=== PATIENT | male | born 1975 | race Caucasian/White ===

== ENCOUNTER 2016-10-23 12:06 | Emergency (ER) | payer OTHER ==
[2016-10-23 12:27] VITALS: TEMP 98.7
--- NOTE | 2016-10-23 12:57 | ED.PDOC ---
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 Timing/Duration: 1-3 hours Severity: moderate Improving Factors: nothing Worsening Factors: nothing Associated Symptoms: nausea/vomiting - nausea but no vomiting Allergies/Adverse Reactions: Allergies NO KNOWN ALLERGY Allergy (Verified 10/23/16 12:27) Home Medications: Ambulatory Orders Magnesium Oxide 400 mg PO BEDTIME #30 cap 10/23/16 PARoxetine HCL [Paxil] 20 mg PO DAILY 10/23/16 Potassium Chloride Tab [Slow-K] 8 meq PO QDPC #5 tab 10/23/16 Review of Systems - Review of Systems Constitutional: States: no symptoms reported EENTM: States: no symptoms reported Respiratory: States: no symptoms reported Cardiology: States: no symptoms reported Gastrointestinal/Abdominal: States: no symptoms reported Genitourinary: States: no symptoms reported Musculoskeletal: States: no symptoms reported Skin: States: no symptoms reported Neurological: States: other - dizziness Endocrine: States: no symptoms reported Hematologic/Lymphatic: States: no symptoms reported Past Medical History (General) - Patient Medical History Hx Asthma: No Hx Cardiac Disorders: No Hx Other PMH: Yes - ASpergers Surgical History: other - hernia repair - Vaccination History Hx Tetanus, Diphtheria Vaccination: Yes Hx Influenza Vaccination: Yes - Social History Hx Tobacco Use: No Hx Alcohol Use: No Hx Substance Use: No Hx Substance Use Treatment: No Hx Depression: No - Activities of Daily Living Hospice Agency (if applicable):: None - Female History Patient is a Female of Child Bearing Age (10 -59 yrs old): No Patient : No Family Medical History - Family History Mother Family History: No Known Physical Exam - Physical Exam General Appearance: Alert, No apparent distress Eye Exam: bilateral normal Ears, Nose, Throat: hearing grossly normal, normal ENT inspection, normal pharynx Neck: non-tender, full range of motion, supple Respiratory: chest non-tender, lungs clear, normal breath sounds, no respiratory distress, no accessory muscle use Cardiovascular/Chest: normal peripheral pulses, regular rate, rhythm, no edema, no gallop, no JVD, no murmur Gastrointestinal/Abdominal: normal bowel sounds, non tender, soft, no organomegaly, no pulsatile mass Back Exam: normal inspection, no CVA tenderness, no vertebral tenderness Extremity: normal range of motion, non-tender, normal inspection 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, no motor/sensory deficits, alert, normal mood/affect, oriented x 3 Skin Exam: normal color, warm/dry Lymphatic: no adenopathy Progress - Results/Orders Results/Orders: 10/23/16 13:00 EKG STAT Laboratory Results WBC 9.6 K/mm3 (4.8-10.8) 10/23/16 13:10 RBC 4.70 M/mm3 (4.70-6.10) 10/23/16 13:10 Hgb 13.6 gm/dL (14.0-18.0) L 10/23/16 13:10 Hct 40.1 % (42.0-52.0) L 10/23/16 13:10 MCV 85.4 fl (80.0-94.0) 10/23/16 13:10 MCH 28.9 pg (27.0-31.0) 10/23/16 13:10 MCHC 33.9 g/dL (33.0-37.0) 10/23/16 13:10 RDW 13.0 % (11.5-14.5) 10/23/16 13:10 Plt Count 168 K/mm3 (130-400) 10/23/16 13:10 MPV 7.2 fl (7.40-10.4) L 10/23/16 13:10 Absolute Neuts (auto) 8.20 K/uL (1.8-6.8) H 10/23/16 13:10 Absolute Lymphs (auto) 0.80 K/uL (1.0-3.4) L 10/23/16 13:10 Absolute Monos (auto) 0.60 K/uL (0.2-0.8) 10/23/16 13:10 Absolute Eos (auto) 0.00 K/uL (0.0-0.4) 10/23/16 13:10 Absolute Basos (auto) 0.00 K/uL (0.0-0.1) 10/23/16 13:10 Neutrophils % 85.4 % (42.0-78.0) H 10/23/16 13:10 Lymphocytes % 8.2 % (20.0-50.0) L 10/23/16 13:10 Monocytes % 6.2 % (2.0-9.0) 10/23/16 13:10 Eosinophils % 0.1 % (1.0-5.0) L 10/23/16 13:10 Basophils % 0.1 % (0.0-2.0) 10/23/16 13:10 Differential Comment Cancelled 10/23/16 13:10 RBC Morphology Cancelled 10/23/16 13:10 PT 13.2 SECONDS (9.4-12.5) H 10/23/16 13:10 INR 1.170 10/23/16 13:10 PTT (SP) 30.1 SECONDS (25.1-36.5) 10/23/16 13:10 D-Dimer, Quantitative < 230 ng/mL (0-230) 10/23/16 13:10 Sodium 136 mmol/L (135-145) 10/23/16 13:10 Potassium 3.5 mmol/L (3.6-5.0) L 10/23/16 13:10 Chloride 100 mmol/L (101-111) L 10/23/16 13:10 Carbon Dioxide 29 mmol/L (21-31) 10/23/16 13:10 Anion Gap 10.5 (12-18) L 10/23/16 13:10 BUN 14 mg/dL (7-18) 10/23/16 13:10 Creatinine 1.01 mg/dL (0.6-1.3) 10/23/16 13:10 BUN/Creatinine Ratio 13.9 (10-20) 10/23/16 13:10 Random Glucose 117 mg/dL (70-105) H 10/23/16 13:10 Serum Osmolality 273.5 mOsm/L (275-295) L 10/23/16 13:10 Calcium 9.0 mg/dL (8.4-10.2) 10/23/16 13:10 Magnesium 1.7 mg/dL (1.8-2.5) L 10/23/16 13:10 Total Bilirubin 1.0 mg/dL (0.2-1.0) 10/23/16 13:10 AST 15 IU/L (10-42) 10/23/16 13:10 ALT 14 IU/L (10-60) 10/23/16 13:10 Alkaline Phosphatase 80 IU/L (42-121) 10/23/16 13:10 Creatine Kinase 83 IU/L (38-174) 10/23/16 13:10 CK-MB (CK-2) 0.8 ng/mL (0.0-4.4) 10/23/16 13:10 CK-MB (CK-2) % Not Reportable 10/23/16 13:10 Troponin I < 0.02 ng/mL (0.01-0.05) 10/23/16 13:10 Serum Total Protein 7.1 gm/dL (6.4-8.2) 10/23/16 13:10 Albumin 4.2 g/dl (3.2-5.5) 10/23/16 13:10 Globulin 2.9 gm/dL (2.3-3.5) 10/23/16 13:10 Albumin/Globulin Ratio 1.4 (1.1-1.9) 10/23/16 13:10 - EKG/XRAY/CT EKG: Sinus, RBBB - incomplete ,biatrial enlargement XRAY: chest - no acute abnormalities noted Departure - Departure Clinical Impression: Dizzy spells, Electrolyte imbalance Time of Disposition: 14:50 Disposition: Discharge to Home or Self Care Condition: Good Departure Forms: ED Discharge - Pt. Copy, Patient Portal Self Enrollment Instructions: DI for Dizziness-Nonvertigo Prescriptions: Magnesium Oxide 400 mg PO BEDTIME #30 cap Potassium Chloride Tab [Slow-K] 8 meq PO QDPC #5 tab Home Medications: Ambulatory Orders Magnesium Oxide 400 mg PO BEDTIME #30 cap 10/23/16 PARoxetine HCL [Paxil] 20 mg PO DAILY 10/23/16 Potassium Chloride Tab [Slow-K] 8 meq PO QDPC #5 tab 10/23/16 Additional Instructions: RETURN TO EMERGENCY ROOM NEEDED;PLEASE EXCUSE FROM WORK 10/23/2016;RETURN TO WORK 10/24/2016 without restrictions.
[2016-10-23] MEDS ORDERED: SODIUM CHLORIDE 0.9% 1000ML 1,000 ML IVS ONE (12:59)
--- NOTE | 2016-10-23 14:10 | RAD ---
EXAM DESCRIPTION: XR CHEST 2 VIEWS CLINICAL HISTORY: pain COMPARISON: None FINDINGS: Two-view chest x-ray shows cardiomediastinal silhouette and pulmonary vasculature to be within normal limits. The lungs are normally aerated and clear. Nodular densities in the lower chest bilaterally likely represent nipple shadows. Costophrenic angles are sharp. Mild disc degenerative changes of the spine are seen. IMPRESSION: No radiographic evidence of acute cardiopulmonary disease. Electronically signed by: Geraldo Arana MD 10/23/2016 14:09
[2016-10-23 15:23] VITALS: BP 142/70; O2SAT 99
== END 2016-10-23 15:06 | disposition home or self-care (01) ==
LOC: ER 12:06
DX: R42 Dizziness and giddiness (principal); E87.8 Other disorders of electrolyte and fluid balance, not elsewhere classified; F84.5 Asperger's syndrome
CPT/HCPCS: 36415; 71020; 80048; 80053; 82550; 82553; 84484; 85025; 85379; 85610; 85730; 93005; J7030

== ENCOUNTER → 2020-04-12 | Outpatient (CLI) | payer OTHER ==
--- NOTE | 2020-04-12 10:39 | RAD ---
EXAM DESCRIPTION: Shoulder,Right 2 or More Views CLINICAL HISTORY: SHOULDER PAIN COMPARISON: None Available. TECHNIQUE: Four views right shoulder FINDINGS: Moderately advanced glenohumeral degenerative arthropathy with subcortical cyst formation in the greater tuberosity region and marginal osteophytes at the inferior glenohumeral articulation. Joint space preserved. Mildly hypertrophic distal clavicle and AC joint. Intact chest wall and upper lung field. IMPRESSION: 1. Degenerative right shoulder with no acute fracture or dislocation. Electronically signed by: Michael Hess MD 04/12/2020 10:37 AM CDT
== END ==
LOC: RAD 07:56
PROVIDERS: ATTEND Orthopaedic Surgery
DX: M19.011 Primary osteoarthritis, right shoulder (principal)